=== PATIENT | female | born 2000 | race Caucasian/White ===

== ENCOUNTER 2023-02-20 14:00 | Outpatient (CLI) | payer OTHER ==
[2023-02-20 18:02] LABS: BILIRUBIN,URINE NEGATIVE (NEGATIVE); GLUCOSE, URINE (UA) NEGATIVE (NEGATIVE); KETONES,URINE (UA) TRACE mg/dL (NEGATIVE); LEUKOCYTE ESTERASE, URINE SMALL (NEGATIVE); NITRITE,URINE NEGATIVE (NEGATIVE); OCCULT BLOOD,URINE LARGE (NEGATIVE); PH,URINE 5.5 PH (5.0-7.5); PROTEIN,URINE 100 mg/dL (NEGATIVE); UROBILINOGEN,URINE 0.2 (NORMAL) E.U./dL (NORMAL)
[2023-02-20 18:26] LABS: CLARITY,URINE CLOUDY (CLEAR)
[2023-02-20 18:57] LABS: BACTERIA,URINE Few /HPF (None Seen); SQUAMOUS EPITHELIAL CELL,UR FEW Squamous (<= Few); WBC,URINE >25 /HPF (0-5)
[2023-02-20 18:59] LABS: AMORPHOUS SEDIMENT,UR Few /LPF
== END 2023-02-20 14:15 | disposition home or self-care (01) ==
LOC: LAB.N 14:00
PROVIDERS: ATTEND Emergency Medicine
DX: R30.0 Dysuria (principal)
CPT/HCPCS: 81001; 87077; 87086; 87181